=== PATIENT | male | born 1965 | race Caucasian/White ===

== ENCOUNTER → 2017-09-28 | Outpatient (CLI) | payer OTHER ==
[~2017-09-28] MED LIST: DILTIAZEM 24HR240 M2 PO; PRADAXA150 MG PO; TAMBOCOR 100 M100 M1 PO; XANAX 0.25 MG0.25 MG PO
== END ==
LOC: NUC 07:05
DX: R10.10 Upper abdominal pain, unspecified (principal); R11.10 Vomiting, unspecified

== ENCOUNTER → 2021-05-11 | Outpatient (CLI) | payer OTHER | LOC: CAT 10:16 | PROVIDERS: ATTEND Neuromusculoskeletal Medicine & OMM | DX: K76.0 Fatty (change of) liver, not elsewhere classified (principal); K57.30 Diverticulosis of large intestine without perforation or abscess without bleeding; J98.11 Atelectasis; N40.0 Benign prostatic hyperplasia without lower urinary tract symptoms ==